=== PATIENT | male | born 1945 | race Caucasian/White ===

== ENCOUNTER 2019-01-15 10:21 | Observation (INO) ==
--- OUTSIDE RECORDS SUMMARY | 2019-01-15 10:24 | External Medical Summary | Continuity of Care Document ---
:1945 Author Name Serg Ornelas, Provider Address Unavailable Unavailable , Care Team Providers Name Role Phone NonMNPG Johnson, Provider Unavailable [email or web address] [email or web address], UNKNOWN Unavailable Unavailable Problems Active medical history not documented Allergies and Adverse Reactions Allergy history not documented Medications Medications not documented Procedures Procedures not documented Immunizations Immunizations not documented Plan of Treatment Planned Observations Planned Goals not documented Results No Known Results Results not documented
--- NOTE | 2019-01-15 11:02 | XRay Report ---
XR chest 1V portable CLINICAL HISTORY: Atypical chest pain COMPARISON STUDY: No previous studies for comparison. FINDINGS: The cardiac and mediastinal contours are normal. There is no evidence of focal pulmonary co nsolidation. There is no evidence of failure. No pleural effusions are visualized.[ IMPRESSION: No active disease in the chest. Electronically signed by: Shaan Knowles M.D. 01/15/2019 11:01 AM
[2019-01-15 11:21] LABS: INR 1.1 (0.9-1.1); Partial Thromboplastin Ratio 0.9; Partial Thromboplastin Time 25.4 Seconds (21.0-31.0); Prothrombin Time 10.8 Seconds (9.0-12.0)
[2019-01-15 11:33] LABS: Basophils # (auto) 0.03 K/uL (0-0.2); Basophils % (auto) 0.4 %; Eosinophils # (auto) 0.28 K/uL (0-0.5); Eosinophils % (auto) 3.8 %; Hematocrit (blood only) 38.3 % (42-52); Hemoglobin 12.7 g/dL (14.0-18.0); Immature Granulocytes # (auto) 0.01 K/uL (0.00-0.02); Immature Granulocytes % (auto) 0.1 %; Lymphocytes # (auto) 1.64 K/uL (1.2-3.4); Mean Corpuscular Hgb Conc 33.2 g/dL (32-36); Mean Corpuscular Volume 97.7 fL (80-100); Mean Platelet Volume 10.7 fL (7.4-10.4); Monocytes # (auto) 0.71 K/uL (0.11-0.59); Monocytes % (auto) 9.5 %; Neutrophils # (auto) 4.78 K/uL (1.4-6.5); Neutrophils % (auto) 64.2 %; Platelet Count 197 K/uL (130-400); RDW Coefficient of Variation 13.3 % (11.5-14.5); RDW Standard Deviation 47.5 fL (36.4-46.3); Red Blood Count 3.92 M/uL (4.7-6.1); White Blood Count 7.45 K/uL (4.8-10.8)
[2019-01-15 11:35] LABS: Alanine Aminotransferase 33 U/L (12-78); Albumin Level 3.5 gm/dl (3.4-5.0); Alkaline Phosphatase 124 U/L (45-117); Aspartate Aminotransferase 23 U/L (15-37); BUN Creatinine Ratio 16.2 (10-20); Bilirubin,Total 0.4 mg/dl (0.2-1); Blood Urea Nitrogen 29 mg/dl (7-18); Calcium 9.2 mg/dl (8.5-10.1); Carbon Dioxide 28 mmol/L (21-32); Chloride 104 mmol/L (98-107); Creatinine Clr Calc Pharmacy 39.8 ml/min; Est GFR (African American) 42.3; Est GFR (Non-African American) 36.5; Globulin 3.5 gm/dl (2.5-4.0); Glucose 315 mg/dl (70-99); Potassium 4.8 mmol/L (3.5-5.1); Sodium 139 mmol/L (136-145); Troponin I < 0.015 ng/ml (0-0.045)
[2019-01-15 11:46] LABS: Beta-Hydroxybutyrate 1.71 mg/dl (0.2-2.81)
[2019-01-15] MEDS ORDERED: INSULIN ASPART PER UNIT SC ONE (12:30)
--- NOTE | 2019-01-15 13:57 | History & Physical Report ---
Date of Service January 15, 2019 Assessment & Plan (1) Chest pain: Concerning for possible ACS given baseline risk factors and known stenosis seen on cath 5-10 yrs ago in the setting of inability to use antiplatelet medications Trop neg x1, serials pending EKG WNL CXR neg for acute CBC, PRP WNL ECHO pending Follows with Dr. Kang in [place], will c/s [facility] cardiology to evaluate need for possible cath (2) CKD (chronic kidney disease) stage 3, GFR 30-59 ml/min: Slightly about baseline of 1.4-1.6 Monitor Holding on IVF given hx of CHF and ZIMMERMAN (3) GAVE (gastric antral vascular ectasia): Dx 02/2018 Protonix since that time Has been off of aspirin and afib anticoagulants since that time No current bleeding (4) Vertigo: continue home meds (5) Diabetes mellitus: SSI PRN Home lantus dose Home metformin A1c pending (6) CHF (congestive heart failure): continue home meds (7) Atrial fibrillation: continue home meds (8) ZIMMERMAN (nonalcoholic steatohepatitis): Stable (9) BERNA (obstructive sleep apnea): Noncompliant due to inability to sleep with mask Likely a contributor to baseline SOB and may be causing chest pain due to hypoventilation syndrome (10) Neuropathy: continue home meds (11) BPH (benign prostatic hyperplasia): continue home meds (12) DVT prophylaxis: SCDs given above History of Present Illness Primary Care Provider: Paulina Tan 73 y/o M c/o chest pain. Pt states that he has been having chest pain for about a year, but it got much more intense starting Friday. This is more of a pressure than jason pain "like someone is pushing on me". It is generally L sided but does move across into the R when it is more intense lately. Nothing into neck or UE. It started to move into his back over the last few days, which is new for him. It occurs at rest or with activity. His activity is somewhat limited due to vertigo, so he does not walk long distances at baseline. He has chronic SOB issues and so he is uncertain if he is SOB with this. He has had about 3 episodes while in the ED today. Pt denies fever, abd pain, n/v/c/d, LE pain or swelling. He feels his vertigo has been worse lately. Pt states he had episodes of chest pain 5-10 yrs ago. He was sent to [facility] for a cath. He reports that there was a 100% blockage in "a small vessel that was too small to stent" and another vessel with 40% blockage. No stents were placed and he was dx with angina. He was put on aspirin, however that had to be stopped in February after a GIB. Pt had also been on anticoagulation for afib, but this was also stopped. He states he was told to not restart those medications yet by his service desk agent, Dr. Kang due to risk of GIB. His next appt with Dr. Kang in 02/12. Pt has blurry vision at baseline with dx of macular edema. Pt has BERNA. He is noncompliant with CPAP due to intolerance of mask. He states he has tried multiple types of masks but he cannot sleep at all while wearing one. Allergies Allergy/AdvReac Type Severity Reaction Status Date / Time lisinopril AdvReac Mild cough Verified 01/15/19 11:18 Home Medications Home Medications Medication Instructions Recorded Confirmed Type Lantus Solostar U-100 Insulin 50 unit SUBCUT HS 02/12/18 01/15/19 History Novolog Flexpen U-100 Insulin 30 unit SUBCUT DAILYBB 02/12/18 01/15/19 History atorvastatin 40 mg PO QPM 02/12/18 01/15/19 History bupropion HCl 150 mg PO BID 02/12/18 01/15/19 History cyanocobalamin (vitamin B-12) 1,000 mcg PO QAM 02/12/18 01/15/19 History furosemide 40 mg PO QAM 02/12/18 01/15/19 History gabapentin 300 mg PO TID 02/12/18 01/15/19 History loratadine 10 mg PO QAM 02/12/18 01/15/19 History losartan 25 mg PO QAM 02/12/18 01/15/19 History methocarbamol 500 mg PO QID PRN 02/12/18 01/15/19 History metoprolol tartrate 25 mg PO BID 02/12/18 01/15/19 History nitroglycerin 1 dose SUBLINGUAL UD 02/12/18 01/15/19 History tamsulosin 0.4 mg PO BID 02/12/18 01/15/19 History pantoprazole [Protonix] 40 mg PO BID #60 tab 02/19/18 01/15/19 Rx acetaminophen [Tylenol Extra 1,000 mg PO Q6H PRN 01/15/19 01/15/19 History Strength] cinnamon bark [Cinnamon] 1,000 mg PO BID 01/15/19 01/15/19 History insulin aspart U-100 [Novolog 35 unit SUBCUT DAILY@01/15/19 01/15/19 History Flexpen U-100 Insulin] metformin 500 mg PO BID 01/15/19 01/15/19 History Past Med/Surg History Medical History Anemia GERD (gastroesophageal reflux disease) (Chronic) Diabetes mellitus (Chronic) CAD (coronary artery disease) (Chronic) CHF (congestive heart failure) (Chronic) Atrial fibrillation (Chronic) Neuropathy BERNA (obstructive sleep apnea) Surgical History History of cataract removal with insertion of prosthetic lens History of cholecystectomy ~12/2017 at the [facility] Family History Mother CHF (congestive heart failure) Other No pertinent family history Social History Preferred Language: Pashto Communication Ability: Effective Sociology Adjunct Instructor Required: No Beliefs That Will Affect Care: Spiritual marital status: Current Living Situation: Spouse Current Living Situation Comment: independent at home Feels Safe at Home: Yes Smoking Status: Never smoker Second Hand Exposure: No ; Hx Alcohol Use: No Hx Substance Use: No Review of Systems Review of Systems: Pertinent positives and negatives reviewed in HPI--all others negative Physical Exam Constitutional: WD/WN, vitals as above Eyes: normal visual robledo by confrontation and + anicteric sclerae Neck: normal visual inspection and trachea midline Respiratory: normal respiratory effort, lungs clear to auscultation Cardiovascular: Rate/Rhythm: regular rate and regular rhythm Gastrointestinal (Abdomen): Inspection/Auscultation: + abdomen distended (mild) Percussion/Palpation: abdomen soft; abdomen nontender Musculoskeletal: Head/Neck/Chest: normocephalic and head atraumatic negative for edema, peripheral pulses intact Skin: no rashes, warm and dry Neurologic: awake; not confused Speech / Cognition: normal speech Psychiatric: A+Ox3, euthymic affect Results & Data Vital Signs (Past 12 Hours) Vital Signs Temp Pulse Pulse Resp BP BP Pulse Ox 01/15/19 13:06 62 20 135/78 96 01/15/19 11:41 60 16 141/67 H 96 01/15/19 10:33 36.8 C 63 20 140/76 97 Diagnostic Findings CXR: neg for acute ECG Rhythm: normal sinus Code Status & VTE Plan Code Status Full code, although pt states no prolonged mechanical life support, feeding tubes, etc. is present and agrees. 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
[2019-01-15] MEDS ORDERED: GLUCOSE 10 TABS/TUBE PO PRN (16:04)
[2019-01-15] MEDS ORDERED: DEXTROSE 50% 50 ML SYRINGE IV PRN (16:04)
[2019-01-15] MEDS ORDERED: GLUCOSE 40% GEL 15 GM TUBE PO PRN (16:04)
[2019-01-15] MEDS ORDERED: MAGNESIUM HYDROXIDE SUSP 30 ML UDC PO PRN (16:04)
[2019-01-15] MEDS ORDERED: CARBOHYDRATES FOR HYPOGLYCEMIA PO PRN (16:04)
[2019-01-15] MEDS ORDERED: ACETAMINOPHEN 500 MG TAB PO PRN (16:04)
[2019-01-15] MEDS ORDERED: METHOCARBAMOL 500 MG TABLET PO PRN (16:04)
[2019-01-15] MEDS ORDERED: GLUCAGON FOR INJ 1 MG VIAL SQ PRN (16:04)
[2019-01-15] MEDS ORDERED: ACETAMINOPHEN 325 MG TAB PO PRN (16:04)
[2019-01-15] MEDS ORDERED: NITROGLYCERIN SL 0.4 MG/TAB TAB SL PRN (16:04)
[2019-01-15] MEDS ORDERED: ONDANSETRON INJ 2 MG/ML 2 ML VIAL IV PRN (16:04)
[2019-01-15] MEDS: INSULIN ASPART 100 UNITS/ML 3 ML PEN SC SCH ×2 (17:42→20:55)
--- NOTE | 2019-01-15 18:27 | Emergency Department Note ---
Entered by Roxanna Van acting as a scribe for Casey Ortega MD History of Present Illness General Chief complaint: Cardiac Assessment Time Seen by Provider: 01/15/19 10:48 Source: patient History of Present Illness Onset (ago): hour(s) (5) Location: chest Radiation: other (shoulder blades) Pain Consistency: + intermittent Quality: + other (pressure) Associated symptoms: + shortness of breath and + weakness The patient is a 73 year old male who presents to the Emergency Room with complaints of intermittent chest pain beginning about 5 hours ago. The patient states he was sitting and talking when the pain began this morning. He notes the pain feels like a pressure that radiates to his shoulder blades. The patient reports shortness of breath and weakness. The patient states that he has a history of episodes of chest pain lasting approximately 10 minutes for the last year. He reports a history of stomach bleeding 8 months ago, and was taken off of blood thinners due to the GI bleed. He states his PCP is Paulina Tan. Home Medications Home Medications Medication Instructions Recorded Confirmed Type Lantus Solostar U-100 Insulin 50 unit SUBCUT HS 02/12/18 01/15/19 History Novolog Flexpen U-100 Insulin 30 unit SUBCUT DAILYBB 02/12/18 01/15/19 History atorvastatin 40 mg PO QPM 02/12/18 01/15/19 History bupropion HCl 150 mg PO BID 02/12/18 01/15/19 History cyanocobalamin (vitamin B-12) 1,000 mcg PO QAM 02/12/18 01/15/19 History furosemide 40 mg PO QAM 02/12/18 01/15/19 History gabapentin 300 mg PO TID 02/12/18 01/15/19 History loratadine 10 mg PO QAM 02/12/18 01/15/19 History losartan 25 mg PO QAM 02/12/18 01/15/19 History methocarbamol 500 mg PO QID PRN 02/12/18 01/15/19 History metoprolol tartrate 25 mg PO BID 02/12/18 01/15/19 History nitroglycerin 1 dose SUBLINGUAL UD 02/12/18 01/15/19 History tamsulosin 0.4 mg PO BID 02/12/18 01/15/19 History pantoprazole [Protonix] 40 mg PO BID #60 tab 02/19/18 01/15/19 Rx acetaminophen [Tylenol Extra 1,000 mg PO Q6H PRN 01/15/19 01/15/19 History Strength] cinnamon bark [Cinnamon] 1,000 mg PO BID 01/15/19 01/15/19 History insulin aspart U-100 [Novolog 35 unit SUBCUT DAILY@,18 01/15/19 01/15/19 History Flexpen U-100 Insulin] metformin 500 mg PO BID 01/15/19 01/15/19 History Allergies Allergy/AdvReac Type Severity Reaction Status Date / Time lisinopril AdvReac Mild cough Verified 01/15/19 11:18 Past Med/Surg History Medical History Anemia GERD (gastroesophageal reflux disease) (Chronic) Diabetes mellitus (Chronic) CAD (coronary artery disease) (Chronic) CHF (congestive heart failure) (Chronic) Atrial fibrillation (Chronic) Neuropathy BERNA (obstructive sleep apnea) Surgical History History of cataract removal with insertion of prosthetic lens History of cholecystectomy ~12/2017 at the [facility] Family History Mother CHF (congestive heart failure) Other No pertinent family history Social History Preferred Language: Lebanese Communication Ability: Effective Storekeeper Helper Required: No Beliefs That Will Affect Care: Worship Worship Beliefs: jehovas witness- pt will not take blood / blood products marital status: Current Living Situation: Alone Current Living Situation Comment: independent at home Feels Safe at Home: Yes Smoking Status: Never smoker Second Hand Exposure: No ; Hx Alcohol Use: No Hx Substance Use: No Review of Systems See HPI for pertinent positives & negatives. and A total of 10 systems reviewed and were otherwise negative Physical Exam Vital Signs Vital Signs - 24 hr 01/15/19 10:33 01/15/19 11:41 01/15/19 13:06 Temperature 36.8 C Temperature Source Oral Sepsis Recent Fever Within 48 Hours No Sepsis New/Unexplained Change in Mental Status No Sepsis Action Taken by Nursing No Action Required Pulse Rate 63 Pulse Rate [Left Finger] 60 62 Respiratory Rate 20 16 20 Respiratory Effort / Characteristics Spontaneous Respiratory Depth Normal Blood Pressure 140/76 Blood Pressure [Left Arm] 141/67 H 135/78 Blood Pressure Mean 97 Blood Pressure Mean [Left Arm] 91 97 Pulse Oximetry 97 96 96 Oxygen Delivery Method Room Air Room Air Room Air General: Non-ill appearing older male in no acute distress. HEENT: Normal cephalic atraumatic. Pupils are equal round and reactive to light. Extraocular movements are intact. Oropharynx is pink with moist mucous membranes. No swelling of the mouth lips or tongue. Neck: Supple with a midline trachea. No meningeal signs or stiffness, no JVD or bruits. No Stridor. Chest: Clear to auscultation bilaterally. No wheezes or rhonchi. No increased work of breathing. Heart: regular rate and rhythm. Abdomen: Soft nontender, nondistended without rebound guarding or rigidity. Extremities: No cyanosis clubbing or edema. No calf tenderness or asymmetry Spine/Back. Non tender to palpation. No CVA tenderness Skin: Good turgor without rashes. Neurologic exam: Cranial nerves two through 12 are intact. Motor and sensation are intact and symmetrical throughout. Course 1045: Past medical records reviewed. The patient was evaluated in room C03. A complete history and physical exam was performed. 1211: Upon reevaluation, I discussed findings and results with the patient. He verbalized agreement of the treatment plan. I spoke with Dr. Stern of the [facility] Hospitalist Service. The patient will be evaluated for further management and care. Administered Medications Insulin Aspart (Novolog Flexpen) 0 units SC [facility] Stop: 02/14/19 16:29 Last Admin: 01/15/19 17:42 Dose: 16 units Documented by: [id number] Cosigned by: [id number] Discontinued Medications Insulin Aspart (Novolog Per Unit) 35 units SC TODAY@1230 ONE Stop: 01/15/19 12:31 Last Admin: 01/15/19 13:04 Dose: 35 units Documented by: [id number] Cosigned by: [id number] Medical Decision Making Differential Diagnosis Acute coronary syndrome, AAA, arrhythmia, peptic ulcer disease, pancreatitis, bowel obstruction Medical Records Attestation: I reviewed the patient's medical records. Home Medications Current Medication List: was personally reviewed by me Laboratory Data Attestation: I reviewed the patient's lab results. Result diagrams: 01/15/19 10:56 01/15/19 10:56 Lab Results 01/15/19 01/15/19 01/15/19 Range/Units 10:56 10:56 10:56 WBC 7.45 (4.8-10.8) K/uL RBC 3.92 L (4.7-6.1) M/uL Hgb 12.7 L (14.0-18.0) g/dL Hct 38.3 L (42-52) % MCV 97.7 (80-100) fL MCH 32.4 (25-34) pg MCHC 33.2 (32-36) g/dL RDW Std Deviation 47.5 H (36.4-46.3) fL RDW Coeff of Tyson 13.3 (11.5-14.5) % Plt Count 197 (130-400) K/uL MPV 10.7 H (7.4-10.4) fL Immature Gran % (Auto) 0.1 % Neut % (Auto) 64.2 % Lymph % (Auto) 22.0 % Medina % (Auto) 9.5 % Eos % (Auto) 3.8 % Baso % (Auto) 0.4 % Immature Gran # (Auto) 0.01 (0.00-0.02) K/uL Neut # (Auto) 4.78 (1.4-6.5) K/uL Lymph # (Auto) 1.64 (1.2-3.4) K/uL Medina # (Auto) 0.71 H (0.11-0.59) K/uL Eos # (Auto) 0.28 (0-0.5) K/uL Baso # (Auto) 0.03 (0-0.2) K/uL PT 10.8 (9.0-12.0) Seconds INR 1.1 (0.9-1.1) APTT 25.4 (21.0-31.0) Seconds PTT Ratio 0.9 Sodium 139 (136-145) mmol/L Potassium 4.8 (3.5-5.1) mmol/L Chloride 104 (98-107) mmol/L Carbon Dioxide 28 (21-32) mmol/L Anion Gap 7.0 (3-11) BUN 29 H (7-18) mg/dl Creatinine 1.81 H (0.6-1.4) mg/dl Est Cr Clr Drug Dosing 39.8 ml/min Est GFR ( Amer) 42.3 Est GFR (Non-Af Amer) 36.5 BUN/Creatinine Ratio 16.2 (10-20) Glucose 315 H* (70-99) mg/dl Calcium 9.2 (8.5-10.1) mg/dl Total Bilirubin 0.4 (0.2-1) mg/dl AST 23 (15-37) U/L ALT 33 (12-78) U/L Alkaline Phosphatase 124 H (45-117) U/L Troponin I < 0.015 (0-0.045) ng/ml Total Protein 7.0 (6.4-8.2) gm/dl Albumin 3.5 (3.4-5.0) gm/dl Globulin 3.5 (2.5-4.0) gm/dl Albumin/Globulin Ratio 1.0 (0.9-2) Lipase 151 (73-393) U/L Beta-Hydroxybutyric Acd 1.71 (0.2-2.81) mg/dl Imaging Data Radiologist's Impression: Radiology results as stated below per my review and the radiologist's interpretation: XR chest 1V portable CLINICAL HISTORY: Atypical chest pain COMPARISON STUDY: No previous studies for comparison. FINDINGS: The cardiac and mediastinal contours are normal. There is no evidence of focal pulmonary consolidation. There is no evidence of failure. No pleural effusions are visualized.[ IMPRESSION: No active disease in the chest. Electronically signed by: Shaan Knowles M.D. 01/15/2019 11:01 AM ECG Data Attestation: I personally reviewed and interpreted this ECG as follows: Indication: chest pain Rate (beats per minute): 64 Rhythm: sinus rhythm Findings: + other (nonspecific ST abnormality) and + left axis deviation; no acute ischemic change and no ectopy Additional Comments: REPEAT EKG: sinus rhythm, rate of 61, no acute ischemic changes or ectopy, no changes from prior Blood Pressure Blood Pressure Findings: Elevated blood pressure Blood Pressure Disposition: further management by hospitalist [facility] Narrative This patient comes in as described above he is been having intermittent chest pain for about a week. At present he is asymptomatic he. [facility] and they were concerned about his symptoms and sent in by ambulance to the ER. He did not get aspirin as he has had a second GI bleed history earlier this year. No recent GI bleed. Denies current shortness of breath. No fall or trauma. He looks well on my exam. [facility] and there are no ischemic changes or ectopy and no change compared to one another. His initial troponin is negative. His chest x-ray does not show congestive heart failure, pneumonia, or pneumothorax. His blood sugar was elevated in the 300 range. He is not acidotic. He was given his usual dose of insulin and fed a meal. I do think that he needs to be admitted/observe for further treatment evaluation of his chest pain/unstable angina. I discussed this with her case making machine operator. They called and got clearance from the [facility] and he can be admitted here I talked to Dr. Stern and she will admit/observe him for further inpatient treatment and evaluation. Impression & Plan Angina pectoris, unstable, Chest pain, Diabetes mellitus, SOB (shortness of breath), Acute hyperglycemia Discharge Plan Visit Data *Final* Discharge Date/Time: 01/15/19 15:16 Chief Complaint: Cardiac Assessment ED Provider: Casey Ortega Discharge Problem: Angina pectoris, unstable, Chest pain, Diabetes mellitus, SOB (shortness of breath), Acute hyperglycemia Patient Disposition: Admitted As Inpatient Discharge Instructions Interventions: ED Discharge Assessment Last Done: 01/15/19 15:16 The scribe's documentation has been prepared under my direction and personally reviewed by me in its entirety. I confirm that the note above accurately reflects all work, treatment, procedures, and medical decision making performed by me.
[2019-01-15] MEDS: GABAPENTIN 150 MG/3 ML UDP PO SCH (20:51)
[2019-01-15] MEDS: BuPROPion XL 150 MG TABCR PO SCH (20:52)
[2019-01-15] MEDS: PANTOprazole 40 MG TAB PO SCH (20:53)
[2019-01-15] MEDS: ATORVASTATIN 40 MG TAB PO SCH (20:53)
[2019-01-15] MEDS: TAMSULOSIN HCL 0.4 MG CAP PO SCH (20:53)
[2019-01-15] MEDS: METOPROLOL TARTRATE 50 MG TAB PO SCH (20:54)
[2019-01-15] MEDS: INSULIN GLARGINE SOLOSTAR 100 UNITS/ML 3 ML PEN SQ SCH (20:55)
[2019-01-15] MEDS ORDERED: NON-FORMULARY MEDICATION (Cinnamon Bark [Cinnamon] 1,000 MG) PO SCH (21:00)
[2019-01-16 07:12] LABS: Basophils # (auto) 0.04 K/uL (0-0.2); Basophils % (auto) 0.5 %; Eosinophils # (auto) 0.32 K/uL (0-0.5); Eosinophils % (auto) 4.2 %; Hematocrit (blood only) 37.6 % (42-52); Hemoglobin 12.6 g/dL (14.0-18.0); Immature Granulocytes # (auto) 0.01 K/uL (0.00-0.02); Immature Granulocytes % (auto) 0.1 %; Lymphocytes # (auto) 2.02 K/uL (1.2-3.4); Lymphocytes % (auto) 26.5 %; Mean Corpuscular Hgb Conc 33.5 g/dL (32-36); Mean Corpuscular Volume 97.9 fL (80-100); Mean Platelet Volume 10.6 fL (7.4-10.4); Monocytes # (auto) 0.82 K/uL (0.11-0.59); Monocytes % (auto) 10.7 %; Neutrophils # (auto) 4.42 K/uL (1.4-6.5); Platelet Count 193 K/uL (130-400); RDW Coefficient of Variation 13.3 % (11.5-14.5); RDW Standard Deviation 47.6 fL (36.4-46.3); Red Blood Count 3.84 M/uL (4.7-6.1); White Blood Count 7.63 K/uL (4.8-10.8)
[2019-01-16 07:32] LABS: BUN Creatinine Ratio 16.5 (10-20); Calcium 8.8 mg/dl (8.5-10.1); Creatinine Clr Calc Pharmacy 35.7 ml/min; Est GFR (African American) 36.9; Est GFR (Non-African American) 31.8; Potassium 4.3 mmol/L (3.5-5.1)
[2019-01-16 08:04] LABS: Estimated Average Glucose 194 mg/dl; Hemoglobin A1C 8.4 % (4.5-5.6)
[2019-01-16] MEDS: LORATADINE 10 MG TAB PO SCH (09:29)
[2019-01-16] MEDS: TAMSULOSIN HCL 0.4 MG CAP PO SCH ×2 (09:29→21:05)
[2019-01-16] MEDS: FUROSEMIDE 40 MG TAB PO SCH (09:29)
[2019-01-16] MEDS: PANTOprazole 40 MG TAB PO SCH ×2 (09:29→21:05)
[2019-01-16] MEDS: CYANOCOBALAMIN 500 MCG TABLET (VITAMIN B-12) PO SCH (09:29)
[2019-01-16] MEDS: BuPROPion XL 150 MG TABCR PO SCH ×2 (09:30→21:04)
[2019-01-16] MEDS: INSULIN ASPART 100 UNITS/ML 3 ML PEN SC SCH ×4 (09:30→21:00)
[2019-01-16] MEDS: GABAPENTIN 150 MG/3 ML UDP PO SCH (09:35)
[2019-01-16] MEDS: LOSARTAN POTASSIUM 25 MG TAB PO SCH (10:04)
[2019-01-16] MEDS: METOPROLOL TARTRATE 50 MG TAB PO SCH ×2 (10:04→21:00)
--- NOTE | 2019-01-16 10:13 | Cardiology Consultation ---
Date of Consultation January 16, 2019 Assessment & Plan (1) SOB (shortness of breath): (2) Chest pain: (3) Diabetes mellitus: (4) Cirrhosis: (5) GAVE (gastric antral vascular ectasia): (6) CKD (chronic kidney disease) stage 3, GFR 30-59 ml/min: (7) Neuropathy: This patient has multiple medical problems including diabetes with multiple complications. He also has ischemic heart disease and cirrhosis. He could be volume overloaded for noncardiac reasons. That could be related to his symptoms. His cardiac markers are negative. With his previous history of cirrhosis and gastrointestinal bleeding think we should have GI service see him evaluation. An echocardiogram is planned which I will review. Currently would continue his medications. I will have further recommendations following the above. History of Present Illness Attending Physician: Lexx Griffin History of Present Illness This is a 73-year-old male patient to is medically complex and also has had fragmented healthcare between the [place] and local [facility]. The patient is not a terrific historian and the information is taken were possible from the medical record as well as the patient. The patient underwent a cardiac catheterization in [place] in 2013 at which time he was found to have an occluded left circumflex artery and moderate disease of the LAD. He also has a history of paroxysmal atrial fibrillation and had been on anticoagulants until he had GI bleeding due to GAVE. Accordingly, he has not been on anticoagulation nor antiplatelet drugs. The patient also states that he had an impacted gallbladder and when he had his surgery he was told that he had cirrhosis. Patient is a long-standing diabetic with chronic complications including neuropathy, retinopathy and chronic kidney disease. He was in his usual state of health until yesterday he felt that his abdomen was bloated. He states that he in the past has had congestive heart failure on the basis of fluid in his abdomen. No chest pain. He states he is short of breath with any type of activity. He denies dizziness or lightheadedness however, he does have a history of positional vertigo. Allergies Allergy/AdvReac Type Severity Reaction Status Date / Time lisinopril AdvReac Mild cough Verified 01/15/19 11:18 Home Medications Home Medications Medication Instructions Recorded Confirmed Type Lantus Solostar U-100 Insulin 50 unit SUBCUT HS 02/12/18 01/15/19 History Novolog Flexpen U-100 Insulin 30 unit SUBCUT DAILYBB 02/12/18 01/15/19 History atorvastatin 40 mg PO QPM 02/12/18 01/15/19 History bupropion HCl 150 mg PO BID 02/12/18 01/15/19 History cyanocobalamin (vitamin B-12) 1,000 mcg PO QAM 02/12/18 01/15/19 History furosemide 40 mg PO QAM 02/12/18 01/15/19 History gabapentin 300 mg PO TID 02/12/18 01/15/19 History loratadine 10 mg PO QAM 02/12/18 01/15/19 History losartan 25 mg PO QAM 02/12/18 01/15/19 History methocarbamol 500 mg PO QID PRN 02/12/18 01/15/19 History metoprolol tartrate 25 mg PO BID 02/12/18 01/15/19 History nitroglycerin 1 dose SUBLINGUAL UD 02/12/18 01/15/19 History tamsulosin 0.4 mg PO BID 02/12/18 01/15/19 History pantoprazole [Protonix] 40 mg PO BID #60 tab 02/19/18 01/15/19 Rx acetaminophen [Tylenol Extra 1,000 mg PO Q6H PRN 01/15/19 01/15/19 History Strength] cinnamon bark [Cinnamon] 1,000 mg PO BID 01/15/19 01/15/19 History insulin aspart U-100 [Novolog 35 unit SUBCUT DAILY@01/15/19 01/15/19 History Flexpen U-100 Insulin] metformin 500 mg PO BID 01/15/19 01/15/19 History Patient History Medical History Anemia GERD (gastroesophageal reflux disease) (Chronic) Diabetes mellitus (Chronic) CAD (coronary artery disease) (Chronic) CHF (congestive heart failure) (Chronic) Atrial fibrillation (Chronic) Neuropathy BERNA (obstructive sleep apnea) Surgical History History of cataract removal with insertion of prosthetic lens History of cholecystectomy ~12/2017 at the [facility] Family History Mother CHF (congestive heart failure) Other No pertinent family history Social History Preferred Language: Czech Communication Ability: Effective Lead 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 Physical Exam Physical Exam: General: no acute distress and stated age Head: normocephalic, no masses, lesions, tenderness or abnormalities Eyes: conjunctiva are pink and non-injected, sclera clear Neck: supple, no adenopathy, no bruits, normal jugular venous pulse, no hepatojugular reflux Chest: normal shape and normal respiratory effort Lungs: clear to auscultation and percussion Cardiac Exam: - regular rate & rhythm, no murmurs gallops or rubs - normal S1, normal S2 Pulses: 2(+) throughout Abdomen: abdomen soft, non-tender, no abnormal masses and no hepatosplenomegaly, no fluid wave Musculoskeletal: no gait disturbance, no joint inflammation, no deforming arthritis Extremities: no edema and no cyanosis Neuro: grossly normal exam Results & Data Vital Signs (Past 12 Hours) Vital Signs Temp Pulse Pulse Resp BP Pulse Ox 01/16/19 07:37 36.4 C L 63 18 118/68 95 01/16/19 03:10 36.6 C 64 18 121/57 L 96 01/15/19 23:53 36.6 C 59 L 60 18 159/68 H 97 Laboratory Results Laboratory Results - last 24 hr 01/15/19 01/15/19 01/15/19 10:56 10:56 10:56 WBC 7.45 RBC 3.92 L Hgb 12.7 L Hct 38.3 L MCV 97.7 MCH 32.4 MCHC 33.2 RDW Std Deviation 47.5 H RDW Coeff of Tyson 13.3 Plt Count 197 MPV 10.7 H Immature Gran % (Auto) 0.1 Neut % (Auto) 64.2 Lymph % (Auto) 22.0 [place] % (Auto) 9.5 Eos % (Auto) 3.8 Baso % (Auto) 0.4 Immature Gran # (Auto) 0.01 Neut # (Auto) 4.78 Lymph # (Auto) 1.64 [place] # (Auto) 0.71 H Eos # (Auto) 0.28 Baso # (Auto) 0.03 PT 10.8 INR 1.1 APTT 25.4 PTT Ratio 0.9 Sodium 139 Potassium 4.8 Chloride 104 Carbon Dioxide 28 Anion Gap 7.0 BUN 29 H Creatinine 1.81 H Est Cr Clr Drug Dosing 39.8 Est GFR ( Amer) 42.3 Est GFR (Non-Af Amer) 36.5 BUN/Creatinine Ratio 16.2 Glucose 315 H* POC Glucose Estimat Average Glucose Hemoglobin A1c Calcium 9.2 Total Bilirubin 0.4 AST 23 ALT 33 Alkaline Phosphatase 124 H Troponin I < 0.015 Total Protein 7.0 Albumin 3.5 Globulin 3.5 Albumin/Globulin Ratio 1.0 Lipase 151 Beta-Hydroxybutyric Acd 1.71 01/15/19 01/15/19 01/15/19 14:46 16:13 16:14 WBC RBC Hgb Hct MCV MCH MCHC RDW Std Deviation RDW Coeff of Tyson Plt Count MPV Immature Gran % (Auto) Neut % (Auto) Lymph % (Auto) [place] % (Auto) Eos % (Auto) Baso % (Auto) Immature Gran # (Auto) Neut # (Auto) Lymph # (Auto) [place] # (Auto) Eos # (Auto) Baso # (Auto) PT INR APTT PTT Ratio Sodium Potassium Chloride Carbon Dioxide Anion Gap BUN Creatinine Est Cr Clr Drug Dosing Est GFR ( Amer) Est GFR (Non-Af Amer) BUN/Creatinine Ratio Glucose POC Glucose 248 H 176 H Estimat Average Glucose Hemoglobin A1c Calcium Total Bilirubin AST ALT Alkaline Phosphatase Troponin I < 0.015 Total Protein Albumin Globulin Albumin/Globulin Ratio Lipase Beta-Hydroxybutyric Acd 01/15/19 01/15/19 01/16/19 20:35 21:52 06:06 WBC 7.63 RBC 3.84 L Hgb 12.6 L Hct 37.6 L MCV 97.9 MCH 32.8 MCHC 33.5 RDW Std Deviation 47.6 H RDW Coeff of Tyson 13.3 Plt Count 193 MPV 10.6 H Immature Gran % (Auto) 0.1 Neut % (Auto) 58.0 Lymph % (Auto) 26.5 [place] % (Auto) 10.7 Eos % (Auto) 4.2 Baso % (Auto) 0.5 Immature Gran # (Auto) 0.01 Neut # (Auto) 4.42 Lymph # (Auto) 2.02 [place] # (Auto) 0.82 H Eos # (Auto) 0.32 Baso # (Auto) 0.04 PT INR APTT PTT Ratio Sodium Potassium Chloride Carbon Dioxide Anion Gap BUN Creatinine Est Cr Clr Drug Dosing Est GFR ( Amer) Est GFR (Non-Af Amer) BUN/Creatinine Ratio Glucose POC Glucose 151 H Estimat Average Glucose Hemoglobin A1c Calcium Total Bilirubin AST ALT Alkaline Phosphatase Troponin I < 0.015 Total Protein Albumin Globulin Albumin/Globulin Ratio Lipase Beta-Hydroxybutyric Acd 01/16/19 01/16/19 01/16/19 06:06 06:06 07:39 WBC RBC Hgb Hct MCV MCH MCHC RDW Std Deviation RDW Coeff of Tyson Plt Count MPV Immature Gran % (Auto) Neut % (Auto) Lymph % (Auto) [place] % (Auto) Eos % (Auto) Baso % (Auto) Immature Gran # (Auto) Neut # (Auto) Lymph # (Auto) [place] # (Auto) Eos # (Auto) Baso # (Auto) PT INR APTT PTT Ratio Sodium 141 Potassium 4.3 Chloride 105 Carbon Dioxide 30 Anion Gap 6.0 BUN 34 H Creatinine 2.03 H Est Cr Clr Drug Dosing 35.7 Est GFR ( Amer) 36.9 Est GFR (Non-Af Amer) 31.8 BUN/Creatinine Ratio 16.5 Glucose 174 H POC Glucose 184 H Estimat Average Glucose 194 Hemoglobin A1c 8.4 H Calcium 8.8 Total Bilirubin AST ALT Alkaline Phosphatase Troponin I Total Protein Albumin Globulin Albumin/Globulin Ratio Lipase Beta-Hydroxybutyric Acd Medications Administered Current Inpatient Medications Acetaminophen (Tylenol) 650 mg PO Q4H PRN PRN Reason: Pain or Fever Stop: 02/14/19 16:03 Atorvastatin Calcium (Lipitor) 40 mg PO QPM TY Stop: 02/14/19 20:59 Last Admin: 01/15/19 20:53 Dose: 40 mg Documented by: Bupropion HCl (Wellbutrin-Xl) 150 mg PO BID TY Stop: 02/14/19 20:59 Last Admin: 01/16/19 09:30 Dose: 150 mg Documented by: Cyanocobalamin (Vitamin B-12) 1,000 mcg PO QAM [facility] Stop: 02/15/19 08:59 Last Admin: 01/16/19 09:29 Dose: 1,000 mcg Documented by: Dextrose (Dextrose 50%) 25 - 50 ml IV UD PRN; Protocol PRN Reason: Hypoglycemia Protocol Stop: 02/14/19 16:03 Furosemide (Lasix) 40 mg PO QAM [facility] Stop: 02/15/19 08:59 Last Admin: 01/16/19 09:29 Dose: 40 mg Documented by: Gabapentin (Neurontin) 150 mg PO BID TY Stop: 02/14/19 20:59 Last Admin: 01/16/19 09:35 Dose: 150 mg Documented by: Glucagon (Glucagen) 1 mg SQ UD PRN; Protocol PRN Reason: Hypoglycemia Protocol Stop: 02/14/19 16:03 Glucose (Glucose 40%) 15 - 30 gm PO UD PRN; Protocol PRN Reason: Hypoglycemia Protocol Stop: 02/14/19 16:03 Glucose (Dex4 Glucose) 4 - 8 tabs PO UD PRN; Protocol PRN Reason: Hypoglycemia Protocol Stop: 02/14/19 16:03 Insulin Aspart (Novolog Flexpen) 0 units SC ACHS [facility] Stop: 02/14/19 16:29 Last Admin: 01/16/19 09:30 Dose: 3 units Documented by: Insulin Glargine (Lantus Solostar Pen) 50 units SQ HS [facility] Stop: 02/14/19 20:59 Last Admin: 01/15/19 20:55 Dose: 50 units Documented by: Loratadine (Claritin) 10 mg PO QAM [facility] Stop: 02/15/19 08:59 Last Admin: 01/16/19 09:29 Dose: 10 mg Documented by: Losartan Potassium (Cozaar) 25 mg PO QAM [facility] Stop: 02/15/19 08:59 Last Admin: 01/16/19 10:04 Dose: 25 mg Documented by: Magnesium Hydroxide (Milk Of Magnesia) 30 ml PO Q12H PRN PRN Reason: Constipation Stop: 02/14/19 16:03 Methocarbamol (Robaxin) 500 mg PO QID PRN PRN Reason: Pain Stop: 02/14/19 16:03 Metoprolol Tartrate (Lopressor) 25 mg PO BID [facility] Stop: 02/14/19 20:59 Last Admin: 01/16/19 10:04 Dose: 25 mg Documented by: Miscellaneous (Carbohydrates For Hypoglycemia) 15 - 30 gm PO UD PRN PRN Reason: Hypoglycemia Treatment Stop: 02/14/19 16:03 Nitroglycerin (Nitrostat) 0.4 mg SL UD PRN PRN Reason: CHEST PAIN Stop: 02/14/19 16:03 Ondansetron HCl (Zofran) 4 mg IV Q6H PRN PRN Reason: Nausea Stop: 02/14/19 16:03 Pantoprazole Sodium (Protonix) 40 mg PO BID TY Stop: 02/14/19 20:59 Last Admin: 01/16/19 09:29 Dose: 40 mg Documented by: Tamsulosin HCl (Flomax) 0.4 mg PO BID [facility] Stop: 02/14/19 20:59 Last Admin: 01/16/19 09:29 Dose: 0.4 mg Documented by: (1) Diabetes mellitus Diabetes mellitus complication status: without complication 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
[2019-01-16] MEDS ORDERED: PERFLUTREN LIPID MICROSPHERE (DEFINITY) IV ONE (12:12)
--- NOTE | 2019-01-16 14:41 | Hospitalist Progress Note ---
Date of Service January 16, 2019 Assessment & Plan (1) Chest pain: Present on admission with intermittent chest pain Need to r/o ACS given baseline risk factors and known stenosis seen on cath 5-10 yrs ago in the setting of inability to use antiplatelet medications Troponin x3 negative EKG showed no ischemic changes ECHO showed no wall motion abnormality. EF 60-65% Cardiology on board recommended GI consult Continue Metoprolol and statin No aspirin given due to hx of GI bleed Continue monitor closely (2) (CKD (chronic kidney disease) stage 3, GFR 30-59 ml/min: Slightly about baseline of 1.4-1.6 Creatinine worsening to 2 today On Lasix 40mg daily Will hold lasix for now until getting am lab Monitor BMP GAVE (gastric antral vascular ectasia): Dx 02/2018 Continue PPI Has been off of aspirin and afib anticoagulants since that time No current bleeding (4) Vertigo: continue home meds (5) Diabetes mellitus: Recent Hba1c 8.4 (01/16/19) Hold metformin for now Continue Lantus and novolog insulin sliding scale Monitor BS (6) Diatolic CHF (congestive heart failure): No sign of fluid overload Will hold lasix until am lab Monitor for signs of fluid overload (7) Atrial fibrillation: Rate control on NSR Continue metoprollol Not on aspirin and anticoagulant due to hx of GI bleed (8) ZIMMERMAN (nonalcoholic steatohepatitis): Liver Cirrhosis No signs of fluid overload GI consult (9) BERNA (obstructive sleep apnea): Noncompliant due to inability to sleep with mask (10) Neuropathy: Continue gabapentin (11) BPH (benign prostatic hyperplasia): continue tamsulosin (12) DVT prophylaxis: SCDs gdue to hx GI bleed (13) Code status FULL CODE Subjective Pt was seen and examined He was admitted under [facility] hospitalist group then [facility] to [facility] Sitting in chair with no distress. Pt said that he feels fine We had a long conversation about losing weight He said that if he loses the the weight most of his health problem will solve He said that he becomes sob with any little exertion Currently denies any chest pain, palpitation, dizziness and SOB Physical Exam Physical Exam: General- No acute distress, obese Head- atraumatic Eyes- PERRL, EOMI, ENT- oropharynx clear Neck- supple, no JVD Lungs- clear to auscultation Heart- regular rhythm; no murmur Abdomen- normal bowel sounds, soft, nontender Extremities- no calf tenderness Neuro- alert, oriented x 3; PERRL, EOMI; no facial palsy; no dysarthria Skin- warm & dry Results & Data Vital Signs (Past 12 Hours) Vital Signs Temp Pulse Pulse Resp BP BP Pulse Ox 01/16/19 12:04 36.9 C 63 18 105/58 L 90 01/16/19 08:00 63 01/16/19 07:37 36.4 C L 63 18 118/68 95 01/16/19 03:10 36.6 C 64 18 121/57 L 96 (1) Chest pain Chest pain type: unspecified Qualified Code(s): R07.9 - Chest pain, unspecified
[2019-01-16] MEDS: INSULIN GLARGINE SOLOSTAR 100 UNITS/ML 3 ML PEN SQ SCH (21:00)
[2019-01-16] MEDS: ATORVASTATIN 40 MG TAB PO SCH (21:05)
[2019-01-16] MEDS: GABAPENTIN 250 MG/5 ML 470 ML BTL PO SCH (21:05)
[2019-01-17 07:34] LABS: BUN Creatinine Ratio 21.9 (10-20); Calcium 8.7 mg/dl (8.5-10.1); Creatinine Clr Calc Pharmacy 39.4 ml/min; Est GFR (African American) 42.1; Est GFR (Non-African American) 36.3; Potassium 4.1 mmol/L (3.5-5.1)
[2019-01-17] MEDS: LOSARTAN POTASSIUM 25 MG TAB PO SCH (08:11)
[2019-01-17] MEDS: CYANOCOBALAMIN 500 MCG TABLET (VITAMIN B-12) PO SCH (08:12)
[2019-01-17] MEDS: BuPROPion XL 150 MG TABCR PO SCH (08:12)
[2019-01-17] MEDS: PANTOprazole 40 MG TAB PO SCH (08:12)
[2019-01-17] MEDS: METOPROLOL TARTRATE 50 MG TAB PO SCH (08:12)
[2019-01-17] MEDS: TAMSULOSIN HCL 0.4 MG CAP PO SCH (08:12)
[2019-01-17] MEDS: LORATADINE 10 MG TAB PO SCH (08:12)
[2019-01-17] MEDS: FUROSEMIDE 40 MG TAB PO SCH (08:12)
[2019-01-17] MEDS: INSULIN ASPART 100 UNITS/ML 3 ML PEN SC SCH ×2 (08:13→12:15)
[2019-01-17] MEDS: GABAPENTIN 250 MG/5 ML 470 ML BTL PO SCH (08:17)
--- NOTE | 2019-01-17 09:37 | Cardiology Progress Note ---
Date of Service January 17, 2019 Assessment & Plan (1) SOB (shortness of breath): (2) Chest pain: (3) Diabetes mellitus: (4) Cirrhosis: (5) GAVE (gastric antral vascular ectasia): (6) CKD (chronic kidney disease) stage 3, GFR 30-59 ml/min: (7) Neuropathy: The patient has maintained sinus rhythm. He feels well. His echocardiogram indicates normal LV systolic function. He has some mild to moderate aortic insufficiency which requires no immediate treatment. No additional cardiac testing is indicated at this time and I believe the patient should be discharged home to outpatient follow-up. Subjective The patient had an uneventful night. No new cardiac complaints. He actually feels well and would like to go home. Review of Systems Review of Systems: All systems reviewed & are unremarkable except as noted in HPI & below Nothing additional. Physical Exam Physical Exam: General: no acute distress and stated age Head: normocephalic, no masses, lesions, tenderness or abnormalities Eyes: conjunctiva are pink and non-injected, sclera clear Neck: supple, no adenopathy, no bruits, normal jugular venous pulse, no hepatojugular reflux Chest: normal shape and normal respiratory effort Lungs: clear to auscultation and percussion Cardiac Exam: - regular rate & rhythm, no murmurs gallops or rubs - normal S1, normal S2 Pulses: 2(+) throughout Abdomen: abdomen soft, non-tender, no abnormal masses and no hepatosplenomegaly Musculoskeletal: no gait disturbance, no joint inflammation, no deforming arthritis Extremities: no edema and no cyanosis Neuro: grossly normal exam Results & Data Vital Signs (Past 12 Hours) Vital Signs Temp Pulse Pulse Resp BP BP Pulse Ox 01/17/19 08:00 56 L 01/17/19 07:23 36.6 C 57 L 18 133/58 L 94 01/17/19 04:29 36.6 C 56 L 19 112/66 93 01/17/19 00:00 53 L 01/16/19 23:32 36.7 C 57 L 18 124/59 L 95 Laboratory Results Laboratory Results - last 24 hr 01/16/19 01/16/19 01/16/19 11:39 16:15 20:22 Sodium Potassium Chloride Carbon Dioxide Anion Gap BUN Creatinine Est Cr Clr Drug Dosing Est GFR ( Amer) Est GFR (Non-Af Amer) BUN/Creatinine Ratio Glucose POC Glucose 183 H 250 H 216 H Calcium 01/17/19 01/17/19 06:36 07:20 Sodium 139 Potassium 4.1 Chloride 104 Carbon Dioxide 30 Anion Gap 5.0 BUN 40 H Creatinine 1.82 H Est Cr Clr Drug Dosing 39.4 Est GFR ( Amer) 42.1 Est GFR (Non-Af Amer) 36.3 BUN/Creatinine Ratio 21.9 H Glucose 158 H POC Glucose 160 H Calcium 8.7 Medications Administered Current Inpatient Medications Acetaminophen (Tylenol) 650 mg PO Q4H PRN PRN Reason: Pain or Fever Stop: 02/14/19 16:03 Atorvastatin Calcium (Lipitor) 40 mg PO QPM TY Stop: 02/14/19 20:59 Last Admin: 01/16/19 21:05 Dose: 40 mg Documented by: Bupropion HCl (Wellbutrin-Xl) 150 mg PO BID [facility] Stop: 02/14/19 20:59 Last Admin: 01/17/19 08:12 Dose: 150 mg Documented by: Cyanocobalamin (Vitamin B-12) 1,000 mcg PO QAM [facility] Stop: 02/15/19 08:59 Last Admin: 01/17/19 08:12 Dose: 1,000 mcg Documented by: Dextrose (Dextrose 50%) 25 - 50 ml IV UD PRN; Protocol PRN Reason: Hypoglycemia Protocol Stop: 02/14/19 16:03 Furosemide (Lasix) 40 mg PO QAM [facility] Stop: 02/15/19 08:59 Last Admin: 01/17/19 08:12 Dose: 40 mg Documented by: Gabapentin (Neurontin) 150 mg PO BID [facility] Stop: 02/15/19 20:59 Last Admin: 01/17/19 08:17 Dose: 150 mg Documented by: Glucagon (Glucagen) 1 mg SQ UD PRN; Protocol PRN Reason: Hypoglycemia Protocol Stop: 02/14/19 16:03 Glucose (Glucose 40%) 15 - 30 gm PO UD PRN; Protocol PRN Reason: Hypoglycemia Protocol Stop: 02/14/19 16:03 Glucose (Dex4 Glucose) 4 - 8 tabs PO UD PRN; Protocol PRN Reason: Hypoglycemia Protocol Stop: 02/14/19 16:03 Insulin Aspart (Novolog Flexpen) 0 units SC ACHS [facility] Stop: 02/14/19 16:29 Last Admin: 01/17/19 08:13 Dose: 8 units Documented by: Insulin Glargine (Lantus Solostar Pen) 50 units SQ HS [facility] Stop: 02/14/19 20:59 Last Admin: 01/16/19 21:00 Dose: 50 units Documented by: Loratadine (Claritin) 10 mg PO QAM [facility] Stop: 02/15/19 08:59 Last Admin: 01/17/19 08:12 Dose: 10 mg Documented by: Losartan Potassium (Cozaar) 25 mg PO QAM [facility] Stop: 02/15/19 08:59 Last Admin: 01/17/19 08:11 Dose: 25 mg Documented by: Magnesium Hydroxide (Milk Of Magnesia) 30 ml PO Q12H PRN PRN Reason: Constipation Stop: 02/14/19 16:03 Methocarbamol (Robaxin) 500 mg PO QID PRN PRN Reason: Pain Stop: 02/14/19 16:03 Metoprolol Tartrate (Lopressor) 25 mg PO BID [facility] Stop: 02/14/19 20:59 Last Admin: 01/17/19 08:12 Dose: 25 mg Documented by: Miscellaneous (Carbohydrates For Hypoglycemia) 15 - 30 gm PO UD PRN PRN Reason: Hypoglycemia Treatment Stop: 02/14/19 16:03 Nitroglycerin (Nitrostat) 0.4 mg SL UD PRN PRN Reason: CHEST PAIN Stop: 02/14/19 16:03 Ondansetron HCl (Zofran) 4 mg IV Q6H PRN PRN Reason: Nausea Stop: 02/14/19 16:03 Pantoprazole Sodium (Protonix) 40 mg PO BID [facility] Stop: 02/14/19 20:59 Last Admin: 01/17/19 08:12 Dose: 40 mg Documented by: Tamsulosin HCl (Flomax) 0.4 mg PO BID [facility] Stop: 02/14/19 20:59 Last Admin: 01/17/19 08:12 Dose: 0.4 mg Documented by: (1) Diabetes mellitus Diabetes mellitus complication status: without complication 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
--- NOTE | 2019-01-17 14:05 | Gastrointestinal Consultation ---
Date of Consultation January 17, 2019 Assessment & Plan (1) Chest pain: Continue Pantorprazole 40 mg by mouth BID (2) GAVE (gastric antral vascular ectasia): I advised him to followup as an outpatient with Dr. Mc in the next 2 weeks. Continue Pantoprazole 40 mg BID (3) ZIMMERMAN (nonalcoholic steatohepatitis): Followup with Dr. Mc as an outpatient Liver panel normal on this hospitalization. History of Present Illness Reason for Consultation: History of GI bleed and ZIMMERMAN Attending Physician: León Hess MD History of Present Illness Hitesh Jay is a 73 yo CM who has an extensive PMHx, including CAD, A-fib, DM, GERD, and GAVE. He last underwent an EGD in February [address] Mc, and underwent APC therapy for GAVE. He presented to the ER on 01/15/[address] with complaints of chest pain. Dr. Ley of Cardiology saw the patient and did an extensive cardiovascular workup, and his symptoms were not felt to be cardiac in nature. At the time that I saw the patient, he states that he was feeling much improved. He denies any chest pain at present. He states at home that he takes twice daily PPI therapy, and does not have any breakthrough symptoms of GERD at this time. He denies any dysphagia, odynophagia, hematemesis, melena or hematochezia. He had previously been taking anticoagulation for his A-fib, however, it was stopped by his outpatient tile conduit layer Dr. Kang, due to concerns of GI bleeding and has not restarted this as of this time. He tolerated his breakfast and lunch today, and had a normal BM today, that had no evidence of blood. He denies abdominal pain, fevers, chills, nausea or vomiting at this time. He has no further complaints. Allergies Allergy/AdvReac Type Severity Reaction Status Date / Time lisinopril AdvReac Mild cough Verified 01/15/19 11:18 Home Medications Home Medications Medication Instructions Recorded Confirmed Type Lantus Solostar U-100 Insulin 50 unit SUBCUT HS 02/12/18 01/15/19 History Novolog Flexpen U-100 Insulin 30 unit SUBCUT DAILYBB 02/12/18 01/15/19 History atorvastatin 40 mg PO QPM 02/12/18 01/15/19 History bupropion HCl 150 mg PO BID 10/11/18 09/13/19 History cyanocobalamin (vitamin B-12) 1,000 mcg PO QAM 02/12/18 01/15/19 History furosemide 40 mg PO QAM 02/12/18 01/15/19 History gabapentin 300 mg PO TID 02/12/18 01/15/19 History loratadine 10 mg PO QAM 02/12/18 01/15/19 History losartan 25 mg PO QAM 02/12/18 01/15/19 History methocarbamol 500 mg PO QID PRN 02/12/18 01/15/19 History metoprolol tartrate 25 mg PO BID 02/12/18 01/15/19 History nitroglycerin 1 dose SUBLINGUAL UD 02/12/18 01/15/19 History tamsulosin 0.4 mg PO BID 02/12/18 01/15/19 History pantoprazole [Protonix] 40 mg PO BID #60 tab 02/19/18 01/15/19 Rx acetaminophen [Tylenol Extra 1,000 mg PO Q6H PRN 01/15/19 01/15/19 History Strength] cinnamon bark [Cinnamon] 1,000 mg PO BID 01/15/19 01/15/19 History insulin aspart U-100 [Novolog 35 unit SUBCUT DAILY@01/15/19 01/15/19 History Flexpen U-100 Insulin] metformin 500 mg PO BID 01/15/19 01/15/19 History Patient History Medical History Anemia GERD (gastroesophageal reflux disease) (Chronic) Diabetes mellitus (Chronic) CAD (coronary artery disease) (Chronic) CHF (congestive heart failure) (Chronic) Atrial fibrillation (Chronic) Neuropathy BERNA (obstructive sleep apnea) Surgical History History of cataract removal with insertion of prosthetic lens History of cholecystectomy ~12/2017 at the [facility], [place], operated by [facility] Family History Mother CHF (congestive heart failure) Other No pertinent family history Social History Preferred Language: Belarusian Communication Ability: Effective Lockstitch Waistband Setter Required: No Beliefs That Will Affect Care: Rastafarian Rastafarian Beliefs: jehovas witness- pt will not take blood / blood products marital status: Current Living Situation: Alone Current Living Situation Comment: independent at home Feels Safe at Home: Yes Smoking Status: Never smoker Second Hand Exposure: No ; Hx Alcohol Use: No Hx Substance Use: No Review of Systems Review of Systems: All systems reviewed & are unremarkable except as noted in HPI & below Physical Exam Constitutional: WD/WN, vitals as above Respiratory: normal respiratory effort, lungs clear to auscultation Cardiovascular: RRR, no murmur, no edema Gastrointestinal (Abdomen): normal bowel sounds, soft, nontender, no hepatospl enomegaly Skin: no rashes, warm and dry Psychiatric: A+Ox3, euthymic affect Results & Data Vital Signs (Past 12 Hours) Vital Signs Temp Pulse Pulse Resp BP BP Pulse Ox 01/17/19 11:39 36.5 C 58 L 17 108/58 L 94 01/17/19 08:00 56 L 01/17/19 07:23 36.6 C 57 L 18 133/58 L 94 01/17/19 04:29 36.6 C 56 L 19 112/66 93 PG Care Time/CCT Total # of Minutes Spent Total Time Spent with Patient: Total time spent is greater than 50% in coordination of care (as documented) at patient's floor/unit and/or counseling patient: (1) Chest pain Chest pain type: unspecified Qualified Code(s): R07.9 - Chest pain, unspecified
--- NOTE | 2019-01-17 14:09 | Hospitalist Progress Note ---
Date of Service January 17, 2019 Assessment & Plan (1) Chest pain: Present on admission with intermittent chest pain Need to r/o ACS given baseline risk factors and known stenosis seen on cath 5-10 yrs ago in the setting of inability to use antiplatelet medications Troponin x3 negative EKG showed no ischemic changes ECHO showed no wall motion abnormality. EF 60-65% Cardiology on board No additional cardiac testing is indicated as per cardio Continue Metoprolol and statin No aspirin given due to hx of GI bleed OK from cardiology standpoint to discharge home today GI on board recommended to continue PPI BID and follow up with GI as an outpatient Already has a follow up appointment with Cardiology on 02/12 (2) (CKD (chronic kidney disease) stage 3, GFR 30-59 ml/min: Slightly about baseline of 1.4-1.6 Creatinine slightly improved to 1.8 Continue Lasix 40mg daily Check BMP within 1 week GAVE (gastric antral vascular ectasia): Dx 02/2018 Continue PPI BID Has been off of aspirin and afib anticoagulants since that time No current bleeding (4) Vertigo: continue home meds (5) Diabetes mellitus: Recent Hba1c 8.4 (01/16/19) Hold metformin for now due to elevate creatinine Continue Lantus and novolog insulin sliding scale Monitor BS and bring your BS log at your next appointment with PCP (6) Diatolic CHF (congestive heart failure): No sign of fluid overload Continue lasix 40mg daily Check BMP in 1 week while on lasix (7) Atrial fibrillation: Rate control on NSR Continue metoprolol Not on aspirin and anticoagulant due to hx of GI bleed (8) ZIMMERMAN (nonalcoholic steatohepatitis): Liver Cirrhosis No signs of fluid overload GI on board Follow up with GI as an outpatient (9) BERNA (obstructive sleep apnea): Noncompliant due to inability to sleep with mask (10) Neuropathy: Continue gabapentin (11) BPH (benign prostatic hyperplasia): continue tamsulosin (12) DVT prophylaxis: SCDs gdue to hx GI bleed (13) Code status FULL CODE 14) Disposition Will discharge home today Subjective Pt was seen and examined Lying in bed with no distress Pt said that he feels much better He said that he feels ok to go home Denies any chest pain, palpitation, dizziness and SOB Physical Exam Physical Exam: General- No acute distress, obese Head- atraumatic Eyes- PERRL, EOMI, ENT- oropharynx clear Neck- supple, no JVD Lungs- clear to auscultation Heart- regular rhythm; no murmur Abdomen- normal bowel sounds, soft, nontender Extremities- no calf tenderness Neuro- alert, oriented x 3; PERRL, EOMI; no facial palsy; no dysarthria Skin- warm & dry Results & Data Vital Signs (Past 12 Hours) Vital Signs Temp Pulse Pulse Resp BP BP Pulse Ox 01/17/19 11:39 36.5 C 58 L 17 108/58 L 94 01/17/19 08:00 56 L 01/17/19 07:23 36.6 C 57 L 18 133/58 L 94 01/17/19 04:29 36.6 C 56 L 19 112/66 93 (1) Chest pain Chest pain type: unspecified Qualified Code(s): R07.9 - Chest pain, unspecified
--- NOTE | 2019-01-17 22:45 | Discharge Summary ---
Date of Service January 17, 2019 Admission HPI Per Admitting Provider 73 y/o M c/o chest pain. Pt states that he has been having chest pain for about a year, but it got much more intense starting Friday. This is more of a pressure than jason pain "like someone is pushing on me". It is generally L sided but does move across into the R when it is more intense lately. Nothing into neck or UE. It started to move into his back over the last few days, which is new for him. It occurs at rest or with activity. His activity is somewhat limited due to vertigo, so he does not walk long distances at baseline. He has chronic SOB issues and so he is uncertain if he is SOB with this. He has had about 3 episodes while in the ED today. Pt denies fever, abd pain, n/v/c/d, LE pain or swelling. He feels his vertigo has been worse lately. Pt states he had episodes of chest pain 5-10 yrs ago. He was sent to [facility] for a cath. He reports that there was a 100% blockage in "a small vessel that was too small to stent" and another vessel with 40% blockage. No stents were placed and he was dx with angina. He was put on aspirin, however that had to be stopped in February after a GIB. Pt had also been on anticoagulation for afib, but this was also stopped. He states he was told to not restart those medications yet by his firefighter marine, Dr. Kang due to risk of GIB. His next appt with Dr. Kang in 02/12. Pt has blurry vision at baseline with dx of macular edema. Pt has BERNA. He is noncompliant with CPAP due to intolerance of mask. He states he has tried multiple types of masks but he cannot sleep at all while wearing one. Admission Exam Per Admitting Provider Constitutional: WD/WN, vitals as above Eyes: normal visual [place] by confrontation and + anicteric sclerae Neck: normal visual inspection and trachea midline Respiratory: normal respiratory effort, lungs clear to auscultation Cardiovascular: regular rate and regular rhythm Gastrointestiinal: + abdomen distended (mild) Percussion/Palpation: abdomen soft; abdomen nontender Musculoskeletal: normocephalic and head atraumatic negative for edema, peripheral pulses intact Skin: no rashes, warm and dry Neurologic: awake; not confused Speech / Cognition: normal speech Psychiatric: A+Ox3, euthymic affect Principal Diagnosis Chest pain CKD (chronic kidney disease) stage 3 GAVE (gastric antral vascular ectasia) Diabetes mellitus: Vertigo Diastolic heart failure ZIMMERMAN (nonalcoholic steatohepatitis) Atrial Fibrillation BERNA (obstructive sleep apnea) Neuropathy BPH Discharge Exam General- No acute distress, obese Head- atraumatic Eyes- PERRL, EOMI, ENT- oropharynx clear Neck- supple, no JVD Lungs- clear to auscultation Heart- regular rhythm; no murmur Abdomen- normal bowel sounds, soft, nontender Extremities- no calf tenderness Neuro- alert, oriented x 3; PERRL, EOMI; no facial palsy; no dysarthria Skin- warm & dry Discharge Data Allergies Allergy/AdvReac Type Severity Reaction Status Date / Time lisinopril AdvReac Mild cough Verified 01/15/19 11:18 Consultations 01/15/19 12:31 ED Decision to Admit Stat 01/15/19 16:04 Consult Cardiology Routine 01/16/19 10:13 Consult Gastroenterology Routine Ordered Studies XR chest 1V portable CLINICAL HISTORY: Atypical chest pain COMPARISON STUDY: No previous studies for comparison. FINDINGS: The cardiac and mediastinal contours are normal. There is no evidence of focal pulmonary consolidation. There is no evidence of failure. No pleural effusions are visualized.[ IMPRESSION: No active disease in the chest. Electronically signed by: Shaan Knowles M.D. 01/15/2019 11:01 AM Dictated: 01/15/19 1100 Transcribed: 01/15/19 1100 Hospital Course (1) Chest pain: Present on admission with intermittent chest pain Need to r/o ACS given baseline risk factors and known stenosis seen on cath 5-10 yrs ago in the setting of inability to use antiplatelet medications Troponin x3 negative EKG showed no ischemic changes ECHO showed no wall motion abnormality. EF 60-65% Cardiology on board No additional cardiac testing is indicated as per cardio Continue Metoprolol and statin No aspirin given due to hx of GI bleed OK from cardiology standpoint to discharge home today GI on board recommended to continue PPI BID and follow up with GI as an outpatient Already has a follow up appointment with Cardiology on 02/12 (2) (CKD (chronic kidney disease) stage 3, GFR 30-59 ml/min: Slightly about baseline of 1.4-1.6 Creatinine slightly improved to 1.8 Continue Lasix 40mg daily Check BMP within 1 week GAVE (gastric antral vascular ectasia): Dx 02/2018 Continue PPI BID Has been off of aspirin and afib anticoagulants since that time No current bleeding (4) Vertigo: continue home meds (5) Diabetes mellitus: Recent Hba1c 8.4 (01/16/19) Hold metformin for now due to elevate creatinine Continue Lantus and novolog insulin sliding scale Monitor BS and bring your BS log at your next appointment with PCP (6) Diatolic CHF (congestive heart failure): No sign of fluid overload Continue lasix 40mg daily Check BMP in 1 week while on lasix (7) Atrial fibrillation: Rate control on NSR Continue metoprolol Not on aspirin and anticoagulant due to hx of GI bleed (8) ZIMMERMAN (nonalcoholic steatohepatitis): Liver Cirrhosis No signs of fluid overload GI on board Follow up with GI as an outpatient (9) BERNA (obstructive sleep apnea): Noncompliant due to inability to sleep with mask (10) Neuropathy: Continue gabapentin (11) BPH (benign prostatic hyperplasia): continue tamsulosin (12) DVT prophylaxis: SCDs gdue to hx GI bleed (13) Code status FULL CODE 14) Disposition Will discharge home today Total Time Total Time Spent Total Time Spent (In Minutes): 35 minutes Total Time Includes: Examination of the Patient, Discharge Planning, Medication Reconciliation, Communication With Other Providers and Other Discharge Plan Discharge Items Patient Disposition: Home - Self-Care Reason For Visit: CHEST PAIN Discharge Diagnosis: Chest pain CKD (chronic kidney disease) stage 3 GAVE (gastric antral vascular ectasia) Diabetes mellitus: Vertigo Diastolic heart failure ZIMMERMAN (nonalcoholic steatohepatitis) Atrial Fibrillation BERNA (obstructive sleep apnea) Neuropathy BPH (benign prostatic hyperplasia) Activity: Resume your previous activity Activity Comment: as tolerated Non-emergency contact: Primary Care Provider, Ordnance Artificer Helper and Validation Engineer Call non-emergency contact if: you have any medication questions Follow-up/Referrals: Paulina Tan PA-C [Primary Care Provider] - Diet: Carb Consistent or DM2 and Heart Healthy Addtl Attending Provider Instructions: Follow up with your primary care provider at the [facility] within 1 week (Please call to schedule for the follow up appointment ) Follow up with Gastroenterology Dr. Mc in 2-4 weeks (Please call to ai ibarra for the follow up appointment ) Already had a follow up appointment with Cardiology Dr. Kang Hold metformin for now due to elevate creatinine level Check BMP within 1 week to monitor your kidney function Fall precaution Continue monitor your blood sugar and your physician will continue to adjust your insulin if needed Pending Studies at Discharge: No Stand-Alone Forms: My [facility] Medications and DC Order Prescriptions: Continued furosemide 40 mg Tablet 40 mg PO QAM RF: 0 atorvastatin 40 mg Tablet 40 mg PO QPM RF: 0 methocarbamol 500 mg Tablet 500 mg PO QID PRN (Reason: Pain) RF: 0 tamsulosin 0.4 mg Capsule 0.4 mg PO BID RF: 0 losartan 25 mg Tablet 25 mg PO QAM RF: 0 metoprolol tartrate 50 mg Tablet 25 mg PO BID RF: 0 nitroglycerin 0.4 mg Tablet, Sublingual 1 dose Sublingual UD RF: 0 loratadine 10 mg Tablet 10 mg PO QAM RF: 0 Novolog Flexpen U-100 Insulin 100 unit/mL Insulin Pen 30 unit SUBCUT DAILYBB RF: 0 bupropion HCl 150 mg Tablet Extended Release 24 Hr 150 mg PO BID RF: 0 Lantus Solostar U-100 Insulin 100 unit/mL (3 mL) Insulin Pen 50 unit SUBCUT HS RF: 0 cyanocobalamin (vitamin B-12) 1,000 mcg Capsule 1,000 mcg PO QAM RF: 0 acetaminophen [Tylenol Extra Strength] 500 mg Tablet 1,000 mg PO Q6H PRN (Reason: Pain) RF: 0 Novolog Flexpen U-100 Insulin 100 unit/mL (3 mL) Insulin Pen 35 unit SUBCUT DAILY@12,18 RF: 0 cinnamon bark [Cinnamon] 500 mg Capsule 1,000 mg PO BID RF: 0 pantoprazole [Protonix] 40 mg tablet,delayed release (DR/EC) 40 mg PO BID Qty: 60 RF: 0 Changed gabapentin 300 mg Capsule 300 mg PO BID Qty: 0 RF: 0 Discontinued metformin 500 mg Tablet 500 mg PO BID RF: 0 Discharge Orders: Discharge Order (Routine); Ordered 01/17/19 Ordered By: León Hess Admission Data Admit Date/Time: 01/15/19 13:47 Attending Provider: León Hess Admit Provider: Teresa Stern Primary Care Provider: Paulina Tan Other Providers: Teresa Stern ; Jarrod Reyes ; Tenzin Darling. Other Interventions: Discharge Summary Assessment (RN) Last Done: 01/17/19 14:51 DC Date/Time DO NOT enter until pt leaves facility: 01/17/19 15:08
== END 2019-01-17 15:08 | disposition home or self-care (01) ==
LOC: 2E 10:21 → ED 10:21 → SUATTDRO 13:47 → 2E 15:16